=== PATIENT | male | born 1945 | race Caucasian/White ===

== ENCOUNTER 2020-07-03 16:18 | Emergency (ER) | payer OTHER ==
[~2020-07-03] VITALS: Ht 167.6 cm; Wt 82.1 kg
[~2020-07-03 16:18] MED LIST: AMLO5 PO; CHLO25B PO; CHOLP PO; Coumadin2 MG PO; LOSA25 PO; METO25 PO; OMEP20ER PO; POTA10T PO; Ranitidine HCl150 M1 PO; Synthroid200 MCG PO; TERA5 PO
[2020-07-03 16:52] LABS: BASOPHILS ABSOLUTE AUTO 0.04 K/mm3 (0.00-0.23); BASOPHILS PERCENT AUTO 1 % (0-2); EOSINOPHILS ABSOLUTE AUTO 0.03 K/mm3 (0.00-0.68); EOSINOPHILS PERCENT AUTO 1 % (0-6); Hematocrit 34.7 % (37.0-53.0); Hemoglobin 11.4 g/dL (13.5-17.5); IMMATURE GRAN ABSOLUTE AUTO 0.01 K/mm3 (0.00-0.10); IMMATURE GRAN PERCENT AUTO 0 % (0-1); LYMPHOCYTES ABSOLUTE AUTO 1.02 K/mm3 (0.84-5.20); LYMPHOCYTES PERCENT AUTO 21 % (21-46); MONOCYTES ABSOLUTE AUTO 0.38 K/mm3 (0.16-1.47); MONOCYTES PERCENT AUTO 8 % (4-13); Mean Corpuscular HGB 33.4 pg (26.0-34.0); Mean Corpuscular HGB Conc 32.9 g/dL (31.5-36.5); Mean Corpuscular Volume 102 fL (80-100); Mean Platelet Volume 8.1 fL (9.1-12.4); NEUTROPHILS ABSOLUTE AUTO 3.39 K/mm3 (1.96-9.15); NEUTROPHILS PERCENT AUTO 70 % (41-73); Platelet Count 120 K/mm3 (150-400); RDW Coefficient Variation 12.2 % (11.7-14.2); RDW Standard Deviation 45.6 fL (35.1-46.3); Red Blood Cell Count 3.41 M/mm3 (4.30-5.90); White Blood Cell Count 4.87 K/mm3 (4.00-11.30)
[2020-07-03 17:14] LABS: Alanine Aminotransfer (ALT/SGP 39 U/L (12-78); Albumin, Blood 3.3 g/dL (3.4-5.0); Albumin/Globulin Ratio 0.9 (0.8-1.8); Alk Phos 57 U/L (50-136); Anion Gap 12 mmol/L (6-16); Aspartate Aminotrans (AST/SGOT 45 U/L (12-37); Bilirubin, Total 0.6 mg/dL (0.1-1.0); Blood Urea Nitrogen 15 mg/dL (8-24); Bun/Creatinine Ratio 16.5 (12.0-20.0); CO2, Blood 21 mmol/L (21-32); Calcium, Blood 8.6 mg/dL (8.5-10.1); Chloride, Blood 108 mmol/L (98-108); Creatinine, Blood 0.91 mg/dL (0.60-1.20); Globulin, Blood 3.6 g/dL (2.2-4.0); Glomerular Filtration Rate >60 (60-); Glucose, Blood 71 mg/dL (70-99); Potassium, Blood 3.7 mmol/L (3.5-5.5); Sodium, Blood 141 mmol/L (136-145); Total Protein, Blood 6.9 g/dL (6.4-8.2); Troponin I <0.015 ng/mL (0.000-0.040)
[2020-07-03 18:19] LABS: International Normalized Ratio 1.32; Prothrombin Time Results 13.9 Sec (9.7-11.5)
== END 2020-07-03 20:06 | disposition home or self-care (01) ==
LOC: ER 16:18
PROVIDERS: Emergency Medicine
DX: I48.91 Unspecified atrial fibrillation (principal); K21.9 Gastro-esophageal reflux disease without esophagitis; I10 Essential (primary) hypertension; Z88.8 Allergy status to other drugs, medicaments and biological substances; Z79.01 Long term (current) use of anticoagulants; Z86.73 Personal history of transient ischemic attack (TIA), and cerebral infarction without residual deficits; Z79.899 Other long term (current) drug therapy
CPT/HCPCS: 71046; 80053; 83880; 84443; 84484; 85025; 85610; 93005; 93010; 96374; 99285-25

== ENCOUNTER 2020-11-17 10:56 | Day surgery (SDC) | payer OTHER ==
--- NOTE | 2020-11-17 13:35 | NUR ---
PT ANXIOUS TO LEAVE, DR MCDONALD IN AND DISCUSSED PLAN OF CARE W PT/. PT DRESSED AND AMB OUT ON OWN. CALLED CARDIOLOGY TO UPDATE PLAN OF CARE/FUTURE APPTS W PT.
== END 2020-11-17 22:48 | disposition home or self-care (01) ==
LOC: MHTC 10:56
DX: I48.19 Other persistent atrial fibrillation (principal); R06.00 Dyspnea, unspecified; I10 Essential (primary) hypertension; E78.5 Hyperlipidemia, unspecified; G47.33 Obstructive sleep apnea (adult) (pediatric); E03.9 Hypothyroidism, unspecified; N40.0 Benign prostatic hyperplasia without lower urinary tract symptoms; Z87.891 Personal history of nicotine dependence; Z79.899 Other long term (current) drug therapy; E66.9 Obesity, unspecified
CPT/HCPCS: 93005; 93010

== ENCOUNTER 2022-08-31 06:05 | Day surgery (SDC) | payer OTHER ==
[2022-08-31] MEDS ORDERED: DABI150C (07:17)
== END 2022-08-31 10:10 | disposition home or self-care (01) ==
DX: M72.0 Palmar fascial fibromatosis [Dupuytren] (principal); I10 Essential (primary) hypertension; E03.9 Hypothyroidism, unspecified; Z87.891 Personal history of nicotine dependence; G47.33 Obstructive sleep apnea (adult) (pediatric); Z79.899 Other long term (current) drug therapy

== ENCOUNTER 2023-02-03 13:32 | Observation (INO) | payer OTHER ==
[~2023-02-03] VITALS: Ht 167.6 cm; Wt 77.9 kg
[~2023-02-03 13:32] MED LIST changes: +DABI150C
[2023-02-03 15:18] LABS: BASOPHILS ABSOLUTE AUTO 0.04 K/mm3 (0.00-0.23); BASOPHILS PERCENT AUTO 0 % (0-2); EOSINOPHILS ABSOLUTE AUTO 0.03 K/mm3 (0.00-0.68); EOSINOPHILS PERCENT AUTO 0 % (0-6); Hematocrit 34.7 % (37.0-53.0); Hemoglobin 11.9 g/dL (13.5-17.5); IMMATURE GRAN ABSOLUTE AUTO 0.05 K/mm3 (0.00-0.10); IMMATURE GRAN PERCENT AUTO 0 % (0-1); LYMPHOCYTES ABSOLUTE AUTO 1.05 K/mm3 (0.84-5.20); LYMPHOCYTES PERCENT AUTO 9 % (21-46); MONOCYTES ABSOLUTE AUTO 0.89 K/mm3 (0.16-1.47); MONOCYTES PERCENT AUTO 8 % (4-13); Mean Corpuscular HGB 34.4 pg (26.0-34.0); Mean Corpuscular HGB Conc 34.3 g/dL (31.5-36.5); Mean Corpuscular Volume 100 fL (80-100); Mean Platelet Volume 8.7 fL (9.1-12.4); NEUTROPHILS ABSOLUTE AUTO 9.85 K/mm3 (1.96-9.15); NEUTROPHILS PERCENT AUTO 83 % (41-73); Platelet Count 183 K/mm3 (150-400); RDW Coefficient Variation 12.5 % (11.7-14.2); RDW Standard Deviation 46.5 fL (35.1-46.3); Red Blood Cell Count 3.46 M/mm3 (4.30-5.90); White Blood Cell Count 11.91 K/mm3 (4.00-11.30)
[2023-02-03 15:29] LABS: Albumin, Blood 2.9 g/dL (3.4-5.0); Albumin/Globulin Ratio 0.8 (0.8-1.8); Bilirubin, Total 0.6 mg/dL (0.1-1.0); Bun/Creatinine Ratio 13.7 (12.0-20.0); Calcium, Blood 8.7 mg/dL (8.5-10.1); Creatinine, Blood 0.88 mg/dL (0.60-1.20); Globulin, Blood 3.7 g/dL (2.2-4.0); Potassium, Blood 4.3 mmol/L (3.5-5.5); Total Protein, Blood 6.6 g/dL (6.4-8.2)
[2023-02-03] MEDS ORDERED: ELIQUIS5 M2 PO (16:56)
[2023-02-04] VITALS (13 sets, daily range): BP systolic 102–159; BP diastolic 61–102
[2023-02-04 05:12] LABS: BASOPHILS ABSOLUTE AUTO 0.03 K/mm3 (0.00-0.23); BASOPHILS PERCENT AUTO 0 % (0-2); EOSINOPHILS ABSOLUTE AUTO 0.02 K/mm3 (0.00-0.68); EOSINOPHILS PERCENT AUTO 0 % (0-6); Hematocrit 34.5 % (37.0-53.0); Hemoglobin 11.7 g/dL (13.5-17.5); IMMATURE GRAN ABSOLUTE AUTO 0.05 K/mm3 (0.00-0.10); IMMATURE GRAN PERCENT AUTO 0 % (0-1); LYMPHOCYTES ABSOLUTE AUTO 1.51 K/mm3 (0.84-5.20); LYMPHOCYTES PERCENT AUTO 11 % (21-46); MONOCYTES ABSOLUTE AUTO 0.87 K/mm3 (0.16-1.47); MONOCYTES PERCENT AUTO 6 % (4-13); Mean Corpuscular HGB 34.3 pg (26.0-34.0); Mean Corpuscular HGB Conc 33.9 g/dL (31.5-36.5); Mean Corpuscular Volume 101 fL (80-100); Mean Platelet Volume 8.3 fL (9.1-12.4); NEUTROPHILS ABSOLUTE AUTO 11.27 K/mm3 (1.96-9.15); NEUTROPHILS PERCENT AUTO 82 % (41-73); Platelet Count 156 K/mm3 (150-400); RDW Coefficient Variation 12.4 % (11.7-14.2); RDW Standard Deviation 46.2 fL (35.1-46.3); Red Blood Cell Count 3.41 M/mm3 (4.30-5.90); White Blood Cell Count 13.75 K/mm3 (4.00-11.30)
[2023-02-04 05:38] LABS: Albumin, Blood 2.6 g/dL (3.4-5.0); Albumin/Globulin Ratio 0.7 (0.8-1.8); Bilirubin, Total 0.7 mg/dL (0.1-1.0); Bun/Creatinine Ratio 13.9 (12.0-20.0); Calcium, Blood 8.6 mg/dL (8.5-10.1); Creatinine, Blood 0.87 mg/dL (0.60-1.20); Globulin, Blood 3.5 g/dL (2.2-4.0); Magnesium, Blood 1.5 mg/dL (1.6-2.4); Potassium, Blood 3.8 mmol/L (3.5-5.5); Total Protein, Blood 6.1 g/dL (6.4-8.2)
--- NOTE | 2023-02-04 06:18 | NUR ---
RECEIVED PATIENT FROM ED ALERT AND ORIENTED X4, COOPERATIVE WITH CARE. NO COFFEE GROUND EMESIS OR BM THIS SHIFT. IV ANTIBIOTICS ADMINISTERED AND MILD ABD PAIN REPORTED UPON MOVEMENT OR PALPATION. HTN, BUT OTHERWISE VSS. PATIENT DRANK WATER, Q6 CHEM SCHECK WNL. STAND BY ASSIST. NO OTHER ISSUES TO REPORT.
--- NOTE | 2023-02-04 14:22 | NUR ---
02/04/23 1422 Ingris Dash HISTORY, CHART, MEDICATIONS AND ALLERGIES REVIEWED BEFORE START OF PROCEDURE. PATIENT CONFIRMS NPO STATUS AND AGREES WITH SCHEDULED PROCEDURE. 3-LEAD EKG REVIEWED WITH PHYSICIAN PRIOR TO START OF PROCEDURE. MONITOR INTACT WITH CONTINUOUS PULSE OXIMETRY,CAPNOGRAPHY, 3-LEAD EKG, INTERMITTENT BP. SUPPLEMENTAL O2 TO BE TITRATED THROUGHOUT PROCEDURE TO MAINTAIN O2 SATURATION ABOVE 90%. PATIENT DETERMINED TO BE ASA APPROPRIATE FOR PROPOFOL SEDATION PRIOR TO START OF PROCEDURE BY DR. MANLEY.
--- NOTE | 2023-02-04 16:06 | NUR ---
Pt remains A&OX3. No n&v noted/verbalized. Up to bathroom with min ast and steady gait. NPO since 0900. Returned from EGD @ 1500 awake and alert, steady gait to bathroom. CLD today then cardiac diet to start tomorrow. Cpap brought from home, order to RT to set up for tonight.
[2023-02-05 05:19] LABS: Hemoglobin 11.6 g/dL (13.5-17.5); Mean Corpuscular HGB 34.7 pg (26.0-34.0); Mean Corpuscular HGB Conc 34.1 g/dL (31.5-36.5); Mean Corpuscular Volume 102 fL (80-100); Mean Platelet Volume 8.4 fL (9.1-12.4); Platelet Count 153 K/mm3 (150-400); RDW Coefficient Variation 12.4 % (11.7-14.2); RDW Standard Deviation 46.5 fL (35.1-46.3); Red Blood Cell Count 3.34 M/mm3 (4.30-5.90); White Blood Cell Count 12.87 K/mm3 (4.00-11.30)
[2023-02-05 05:28] VITALS: BP 154/73
[2023-02-05 05:52] LABS: Albumin, Blood 2.5 g/dL (3.4-5.0); Albumin/Globulin Ratio 0.8 (0.8-1.8); Bilirubin, Total 0.5 mg/dL (0.1-1.0); Bun/Creatinine Ratio 11.4 (12.0-20.0); Calcium, Blood 8.1 mg/dL (8.5-10.1); Creatinine, Blood 0.88 mg/dL (0.60-1.20); Globulin, Blood 3.1 g/dL (2.2-4.0); Percent Saturation 12.1 % (20.0-50.0); Potassium, Blood 3.7 mmol/L (3.5-5.5); Total Protein, Blood 5.6 g/dL (6.4-8.2)
--- NOTE | 2023-02-05 06:23 | NUR ---
PATIENT REMAINS ALERT AND ORIENTED X4, COOPERATIVE WITH CARE, IND IN ROOM WHEN IV NOT INFUSING. HTN BUT OTHERWISE VSS. NO COFFEE GROUND EMESIS OR BLOOD IN STOOL. NO OTHER ISSUES TO REPORT.
[2023-02-05 08:42] VITALS: BP 137/66
[2023-02-05] MEDS ORDERED: VISBIOME 112.51 EACH PO (13:42)
[2023-02-05] MEDS ORDERED: AMOCLA875 PO (13:42)
[2023-02-05] MEDS ORDERED: PANT40 PO (13:44)
--- NOTE | 2023-02-05 14:32 | NUR ---
DISCHARGE SUMMARY PT A&OX4, VSS/RA, KARRIE PO, VOIDING, DENIES BM TODAY, AMB INDEPENDENTLY, IV DC'D. DC INS PROVIDED. PT AND REP UNDERSTANDING THOSE INSTRUCTIONS INCLUDING CALLING [facility] TO [facility]EDULE [facility], PICKING UP PRESCRIPTIONS. LEFT FLOOR WITH ALL PERSONAL POSSESSIONS INCLUDING DC PACKET; DECLINED WC.
== END 2023-02-05 14:30 | disposition home or self-care (01) ==
LOC: ER 13:32 → MEDS 13:33 → ERHOLD 13:33 → MEDS 23:55
PROVIDERS: Emergency Medicine; Internal Medicine; ADMIT Student in an Organized Health Care Education/Training Program
DX: K29.71 Gastritis, unspecified, with bleeding (principal); D68.32 Hemorrhagic disorder due to extrinsic circulating anticoagulants; T45.515A Adverse effect of anticoagulants, initial encounter; K44.9 Diaphragmatic hernia without obstruction or gangrene; K31.7 Polyp of stomach and duodenum; K22.70 Barrett's esophagus without dysplasia; I10 Essential (primary) hypertension; I48.91 Unspecified atrial fibrillation; K21.9 Gastro-esophageal reflux disease without esophagitis; K57.32 Diverticulitis of large intestine without perforation or abscess without bleeding; Z87.891 Personal history of nicotine dependence; Z88.8 Allergy status to other drugs, medicaments and biological substances; Z79.890 Hormone replacement therapy; Z79.01 Long term (current) use of anticoagulants; Z79.899 Other long term (current) drug therapy
CPT/HCPCS: 36415; 74177; 80053; 82728; 82947; 83540; 83550; 83735; 85025; 85027; 86850; 86900; 86901; 94660; 94762; 96365-59; 96366; 96368; 96375; 96376; 99285-25; A9270; C9113; G0378; J0696; J0744; J2405; J2704; J3475; J7040; J7120; Q9967

== ENCOUNTER 2024-06-27 08:11 | Day surgery (SDC) | payer OTHER ==
[~2024-06-27] VITALS: Ht 167.6 cm; Wt 74.9 kg
[~2024-06-27 08:11] MED LIST changes: +AMOCLA875 PO; +ELIQUIS5 M2 PO; +Lactated Ringer's 1,000 ML IV ONE; +ONDA4ODT MM; +PANT40 PO; +VISBIOME 112.51 EACH PO
[2024-06-27] MEDS ORDERED: METO50 PO (08:39)
[2024-06-27] MEDS ORDERED: Lactated Ringer's 1,000 ML IV ONE (08:51)
[2024-06-27] MEDS ORDERED: CeFAZolin Sodium 2,000 MG VIAL ONE (09:02)
[2024-06-27] MEDS ORDERED: NS 50 ML IV ONE (09:03)
[2024-06-27] MEDS ORDERED: FentaNYL Citrate 50 MCG/ML 2 ML Injection ONE (09:15)
[2024-06-27] MEDS ORDERED: Dexamethasone Sod Phos 10 MG/ML 1ML VIAL ONE (09:15)
[2024-06-27] MEDS ORDERED: Ondansetron HCl 2 MG / ML 2ML Vial ONE (09:40)
[2024-06-27] MEDS ORDERED: Lidocaine HCl 2% 20 ML MDV INJ ONE (09:55)
--- NOTE | 2024-06-27 09:58 | NUR ---
06/27/24 0958 Ebonie Butler LEFT SMALL FINGER AMPUTATION NOT SENT TO PATHOLGY PER JONATHON
--- NOTE | 2024-06-27 10:32 | NUR ---
06/27/24 1032 NATALIA GENAO TRIAL OFF O2
[2024-06-27] MEDS ORDERED: HYDROcodone 5-APAP 325 TAB ONE (10:46)
--- NOTE | 2024-06-27 11:00 | NUR ---
06/27/24 1100 NATALIA GENAO PT COUGHING. STATES THROAT IS SORE. STATES KIND OF CHOKING. DRINKING APPLE JUICE. ABLE TO TAKE PAIN PILL WO DIFF.
[2024-06-27 11:01] VITALS: BP 140/79
== END 2024-06-27 11:34 | disposition home or self-care (01) ==
LOC: ORSCSDS 08:11
PROVIDERS: Orthopaedic Surgery
PROC: 0X6W0Z1 Detachment at Left Little Finger, High, Open Approach (ICD-10-PCS; principal; 2024-06-27 11:00)
PROC: 0JNK0ZZ Release Left Hand Subcutaneous Tissue and Fascia, Open Approach (ICD-10-PCS; principal; 2024-06-27 11:00)
DX: M72.0 Palmar fascial fibromatosis [Dupuytren] (principal); I10 Essential (primary) hypertension; K21.9 Gastro-esophageal reflux disease without esophagitis; G47.33 Obstructive sleep apnea (adult) (pediatric); E03.9 Hypothyroidism, unspecified; E78.5 Hyperlipidemia, unspecified; I48.0 Paroxysmal atrial fibrillation; Z87.891 Personal history of nicotine dependence; Z79.01 Long term (current) use of anticoagulants; Z79.899 Other long term (current) drug therapy
CPT/HCPCS: A9270; J0690; J1100; J2405; J3010; J7120

== ENCOUNTER 2024-09-11 10:26 | Emergency (ER) | payer OTHER ==
[~2024-09-11] VITALS: Ht 167.6 cm; Wt 73.5 kg
[~2024-09-11 10:26] MED LIST changes: -Lactated Ringer's 1,000 ML IV ONE; +METO50 PO
[2024-09-11] MEDS ORDERED: EUTHYROX175 MCG PO (10:54)
[2024-09-11] MEDS ORDERED: Tranexamic Acid 1000 MG/10 ML 10ML Vial (SDV) ONE (10:55)
[2024-09-11] MEDS ORDERED: Voltaren100 GM (10:55)
[2024-09-11] MEDS ORDERED: [UNRECOGNIZED DRUG - OTHER] (10:55)
[2024-09-11] MEDS ORDERED: Oxymetazoline 0.05% Nasal Relief Spray 15mL BTL ONE (10:55)
[2024-09-11 11:23] LABS: BASOPHILS ABSOLUTE AUTO 0.05 K/mm3 (0.00-0.23); BASOPHILS PERCENT AUTO 1 % (0-2); EOSINOPHILS ABSOLUTE AUTO 0.03 K/mm3 (0.00-0.68); EOSINOPHILS PERCENT AUTO 1 % (0-6); Hematocrit 32.6 % (37.0-53.0); Hemoglobin 11.2 g/dL (13.5-17.5); IMMATURE GRAN ABSOLUTE AUTO 0.04 K/mm3 (0.00-0.10); IMMATURE GRAN PERCENT AUTO 1 % (0-1); LYMPHOCYTES ABSOLUTE AUTO 0.82 K/mm3 (0.84-5.20); LYMPHOCYTES PERCENT AUTO 14 % (21-46); MONOCYTES ABSOLUTE AUTO 0.68 K/mm3 (0.16-1.47); MONOCYTES PERCENT AUTO 12 % (4-13); Mean Corpuscular HGB 35.7 pg (26.0-34.0); Mean Corpuscular HGB Conc 34.4 g/dL (31.5-36.5); Mean Corpuscular Volume 104 fL (80-100); Mean Platelet Volume 8.2 fL (9.1-12.4); NEUTROPHILS ABSOLUTE AUTO 4.06 K/mm3 (1.96-9.15); NEUTROPHILS PERCENT AUTO 72 % (41-73); Platelet Count 124 K/mm3 (150-400); RDW Coefficient Variation 13.2 % (11.7-14.2); RDW Standard Deviation 50.4 fL (35.1-46.3); Red Blood Cell Count 3.14 M/mm3 (4.30-5.90); White Blood Cell Count 5.68 K/mm3 (4.00-11.30)
[2024-09-11 11:41] VITALS: BP 155/73
[2024-09-11] MEDS ORDERED: Ondansetron HCl 2 MG / ML 2ML Vial IV ONE (11:45)
== END 2024-09-11 13:11 | disposition home or self-care (01) ==
LOC: ER 10:26
PROVIDERS: Student in an Organized Health Care Education/Training Program
DX: R04.0 Epistaxis (principal); D64.9 Anemia, unspecified; I48.91 Unspecified atrial fibrillation; I10 Essential (primary) hypertension; E03.9 Hypothyroidism, unspecified; G47.33 Obstructive sleep apnea (adult) (pediatric); Z87.891 Personal history of nicotine dependence; Z86.73 Personal history of transient ischemic attack (TIA), and cerebral infarction without residual deficits; Z88.8 Allergy status to other drugs, medicaments and biological substances; Z79.1 Long term (current) use of non-steroidal anti-inflammatories (NSAID); Z79.890 Hormone replacement therapy; Z79.899 Other long term (current) drug therapy; Z79.01 Long term (current) use of anticoagulants
CPT/HCPCS: 30901; 85025; 96374-59; 99283-25; A9270; J2405

== ENCOUNTER 2025-05-05 08:20 | Day surgery (SDC) | payer OTHER ==
[~2025-05-05] VITALS: Ht 167.6 cm; Wt 72.7 kg
[~2025-05-05 08:20] MED LIST changes: +EUTHYROX175 MCG PO; +Voltaren100 GM; +[UNRECOGNIZED DRUG - OTHER]
[2025-05-05] MEDS ORDERED: CeFAZolin Sodium 2,000 MG VIAL ONE (09:33)
[2025-05-05] MEDS ORDERED: METO50ER (09:54)
[2025-05-05] MEDS ORDERED: Lidocaine HCl 2% 10 ML SDA ONE ×2 (10:30→11:14)
[2025-05-05] MEDS ORDERED: Ondansetron HCl 2 MG / ML 2ML Vial ONE ×2 (10:36→12:11)
[2025-05-05] MEDS ORDERED: Dexamethasone Sod Phos 10 MG/ML 1ML VIAL ONE (10:36)
[2025-05-05] MEDS ORDERED: Lidocaine HCl 2% 10 ML SDA INJ ONE ×2 (11:04)
[2025-05-05] MEDS ORDERED: FentaNYL Citrate 50 MCG/ML 2 ML Injection ONE (11:54)
--- NOTE | 2025-05-05 12:39 | NUR ---
05/05/25 Jorge Tineo UPON WAKING, PT INITIALLY REPORTED "MILD," "TOLERABLE" LEFT SIDED CHEST PAIN, WHICH QUICKLY RESOLVED. ADOLPH GUZMAN NOTIFIED. SHE ORDERED 12 LEAD ECG. AFTER REVIEWING ECG, ADOLPH GUZMAN APPROVED D/C IF NO CARDIAC SYMPTOMS. PT REPORTED NAUSEA UPON WAKING. NAUSEA IMPROVED WITH ADMINISTRATION OF 4MG IV ZOFRAN, PER ADOLPH GUZMAN ORDERS (SEE EMAR).
--- NOTE | 2025-05-05 12:40 | NUR ---
05/05/25 1240 Frida Alvarado REPORT RECEIVED FROM MELONIE HODGSON. PT AWAKE, REPORTS NAUSEA. PER REMA WILHELM, ANTIEMETIC GIVEN IN PACU. PT RATES PAIN IN HAND 12/16. DENIES CHEST PAIN AT THIS TIME. VSS. DRESSING CDI. LEFT INDEX FINGER PINK, WARM, MOIST. CAP REFILL <3 SECONDS ON LEFT FINGER. UNABLE TO PALPATE RADIAL PULSE DUE TO DRESSING.
[2025-05-05 13:02] VITALS: BP 119/57
== END 2025-05-05 13:30 | disposition home or self-care (01) ==
LOC: ORSCSDS 08:20
PROVIDERS: Orthopaedic Surgery
PROC: 0JNK0ZZ Release Left Hand Subcutaneous Tissue and Fascia, Open Approach (ICD-10-PCS; principal; 2025-05-05 10:15)
DX: M72.0 Palmar fascial fibromatosis [Dupuytren] (principal); I10 Essential (primary) hypertension; E78.5 Hyperlipidemia, unspecified; Z87.891 Personal history of nicotine dependence; G47.33 Obstructive sleep apnea (adult) (pediatric); K21.9 Gastro-esophageal reflux disease without esophagitis; E03.9 Hypothyroidism, unspecified; I48.0 Paroxysmal atrial fibrillation; Z79.01 Long term (current) use of anticoagulants; Z79.899 Other long term (current) drug therapy
CPT/HCPCS: 93005; 93010; C1889; J0690; J1100; J2003; J2405; J2704; J3010; J7120